=== PATIENT | male | born 1995 | race Caucasian/White ===

== ENCOUNTER 2020-07-25 13:20 | Inpatient (IN) | payer OTHER ==
[~2020-07-25] VITALS: Ht 170.2 cm; Wt 68.0 kg
[2020-07-25 15:28] LABS: COVID AG,FIA SOURCE NASOPHARYNGEAL
[2020-07-25 16:13] LABS: BASOPHILS % (AUTO) 0.1 % (0.0-2.0); EOSINOPHILS % (AUTO) 0.6 % (1.0-6.0); HEMATOCRIT 41.5 % (41-53); HEMOGLOBIN 14.1 g/dL (13.5-17.5); LYMPHOCYTES # (AUTO) 1.2 K/uL (1.0-4.8); LYMPHOCYTES % (AUTO) 25.2 % (22.0-44.0); MEAN CORPUSCULAR HEMOGLOBIN 28.7 pg (26.0-34.0); MEAN CORPUSCULAR HGB CONC 33.9 G/dL (31.0-37.0); MEAN CORPUSCULAR VOLUME 85 fL (80-100); MONOCYTES # (AUTO) 0.8 K/uL (0.1-1.0); MONOCYTES % (AUTO) 16.9 % (2.0-9.0); NEUTROPHILS # (AUTO) 2.6 K/uL (1.8-7.7); NEUTROPHILS % (AUTO) 57.2 % (40.0-70.0); PLATELET COUNT (AUTO) 153 K/uL (150-450)
[2020-07-25] MEDS ORDERED: ONDANSETRON HCL 4 MG/2 ML VIAL IVP PRN (17:00)
[2020-07-25] MEDS ORDERED: 0.9% SODIUM CHLORIDE 10 ML SYRINGE IVP PRN (17:00)
[2020-07-25] MEDS ORDERED: ACETAMINOPHEN 325 MG TABLET PO PRN ×2 (17:00→17:30)
[2020-07-25 17:27] LABS: ANION GAP 12 mmol/L (8-16); CALCIUM, TOTAL 9.3 mg/dL (8.8-10.5); CARBON DIOXIDE 25 mmol/L (22-29); CHLORIDE 104 mmol/L (98-107); CREATININE 0.97 mg/dL (0.60-1.30); GLOMERULAR FILTR. RATE CALC > 60 mL/min (>60); GLUCOSE,RANDOM 93 mg/dL (70-110); POTASSIUM 3.9 mmol/L (3.5-5.1); SODIUM SERUM 141 mmol/L (136-145); UREA NITROGEN, BLOOD 13 mg/dL (7-18)
[2020-07-25] MEDS ORDERED: ALBUTEROL SULFATE HFA 90 MCG/PUFF 8 GM INHALER IH PRN (17:30)
[2020-07-25 17:33] LABS: ALANINE AMINOTRANSFERASE 34 U/L (12-78); ALBUMIN 4.3 g/dL (3.4-5.0); ALKALINE PHOSPHATASE 87 U/L (46-116); ASPARTATE AMINOTRANSFERASE 13 U/L (15-37); BILIRUBIN,TOTAL 0.4 mg/dL (0.1-1.0); TOTAL PROTEIN, SERUM 8.1 g/dL (6.4-8.2)
[2020-07-25] MEDS: DOCUSATE SODIUM 100 MG CAPSULE PO SCH (21:00)
[2020-07-25 22:15] VITALS: BP 124/65
[2020-07-25] MEDS: HEPARIN SODIUM,PORCINE 5,000 UNITS/ML VIAL SQ SCH (23:04)
[2020-07-25] MEDS: ZINC SULFATE 220 MG CAPSULE PO SCH (23:04)
[2020-07-26] MEDS ORDERED: BENZONATATE 100 MG CAPSULE PO PRN (09:00)
[2020-07-26 09:31] VITALS: BP 110/45
[2020-07-26] MEDS: ZINC SULFATE 220 MG CAPSULE PO SCH ×2 (09:57→20:35)
[2020-07-26] MEDS: FAMOTIDINE 20 MG TABLET PO SCH (09:57)
[2020-07-26] MEDS: DOCUSATE SODIUM 100 MG CAPSULE PO SCH ×2 (09:57→20:34)
[2020-07-26] MEDS: HEPARIN SODIUM,PORCINE 5,000 UNITS/ML VIAL SQ SCH ×2 (09:57→16:54)
[2020-07-26 20:35] VITALS: BP 115/73
[2020-07-27] MEDS: HEPARIN SODIUM,PORCINE 5,000 UNITS/ML VIAL SQ SCH ×2 (00:21→08:12)
[2020-07-27 04:22] VITALS: BP 104/56
[2020-07-27] MEDS: ZINC SULFATE 220 MG CAPSULE PO SCH ×2 (08:12→21:40)
[2020-07-27] MEDS: DOCUSATE SODIUM 100 MG CAPSULE PO SCH ×2 (08:12→21:40)
[2020-07-27] MEDS: FAMOTIDINE 20 MG TABLET PO SCH (08:12)
[2020-07-27 10:25] VITALS: BP 124/73
[2020-07-27 19:00] VITALS: BP 138/82
[2020-07-27] MEDS: LORazepam 0.5 MG TABLET PO PRN (20:01)
[2020-07-28 05:05] VITALS: BP 110/60
[2020-07-28 07:29] LABS: BASOPHILS % (AUTO) 0.3 % (0.0-2.0); EOSINOPHILS % (AUTO) 2.1 % (1.0-6.0); HEMATOCRIT 41.8 % (41-53); HEMOGLOBIN 14.5 g/dL (13.5-17.5); LYMPHOCYTES # (AUTO) 1.7 K/uL (1.0-4.8); LYMPHOCYTES % (AUTO) 37.4 % (22.0-44.0); MEAN CORPUSCULAR HEMOGLOBIN 29.2 pg (26.0-34.0); MEAN CORPUSCULAR HGB CONC 34.7 G/dL (31.0-37.0); MEAN CORPUSCULAR VOLUME 84 fL (80-100); MONOCYTES # (AUTO) 0.6 K/uL (0.1-1.0); MONOCYTES % (AUTO) 12.6 % (2.0-9.0); NEUTROPHILS # (AUTO) 2.1 K/uL (1.8-7.7); NEUTROPHILS % (AUTO) 47.6 % (40.0-70.0); PLATELET COUNT (AUTO) 173 K/uL (150-450); RED BLOOD CELL COUNT(AUTO) 4.96 MIL/uL (4.50-5.90); RED CELL DISTRIBUTION WIDTH 13.8 % (11.5-14.5)
[2020-07-28 07:47] LABS: ANION GAP 7 mmol/L (8-16); CALCIUM, TOTAL 8.9 mg/dL (8.8-10.5); CARBON DIOXIDE 29 mmol/L (22-29); CHLORIDE 104 mmol/L (98-107); CREATININE 1.05 mg/dL (0.60-1.30); GLOMERULAR FILTR. RATE CALC > 60 mL/min (>60); GLUCOSE,RANDOM 82 mg/dL (70-110); POTASSIUM 4.1 mmol/L (3.5-5.1); SODIUM SERUM 140 mmol/L (136-145); UREA NITROGEN, BLOOD 17 mg/dL (7-18)
[2020-07-28 08:22] VITALS: BP 114/52
[2020-07-28] MEDS: FAMOTIDINE 20 MG TABLET PO SCH (09:32)
[2020-07-28] MEDS: ZINC SULFATE 220 MG CAPSULE PO SCH ×2 (09:32→20:46)
[2020-07-28] MEDS: DOCUSATE SODIUM 100 MG CAPSULE PO SCH ×2 (09:32→20:45)
[2020-07-28] MEDS ORDERED: DOCU-275 PO (12:28)
[2020-07-28] MEDS ORDERED: FAMO20 PO (12:30)
[2020-07-28] MEDS ORDERED: ZINC220C14 PO (12:31)
[2020-07-28] MEDS ORDERED: ALBU8HFA IH (12:32)
[2020-07-28] MEDS ORDERED: ACET-2865 PO (12:32)
[2020-07-28] MEDS ORDERED: BENZ-51 PO (12:33)
[2020-07-28 20:00] VITALS: BP 133/73
[2020-07-28] MEDS: LORazepam 0.5 MG TABLET PO PRN (22:23)
[2020-07-29 05:05] VITALS: BP 109/58
[2020-07-29 06:23] VITALS: BP 109/58
[2020-07-29 08:20] VITALS: BP 115/60
[2020-07-29] MEDS: ZINC SULFATE 220 MG CAPSULE PO SCH ×2 (08:49→20:21)
[2020-07-29] MEDS: DOCUSATE SODIUM 100 MG CAPSULE PO SCH ×2 (08:49→20:21)
[2020-07-29] MEDS: FAMOTIDINE 20 MG TABLET PO SCH (08:49)
[2020-07-29 18:24] LABS: COVID AG,FIA SOURCE NASOPHARYNGEAL
[2020-07-29 20:33] VITALS: BP 122/68
[2020-07-30 05:26] VITALS: BP 113/68
[2020-07-30 08:02] VITALS: BP 106/52
[2020-07-30] MEDS: ZINC SULFATE 220 MG CAPSULE PO SCH ×2 (08:07→21:15)
[2020-07-30] MEDS: FAMOTIDINE 20 MG TABLET PO SCH (08:07)
[2020-07-30] MEDS: DOCUSATE SODIUM 100 MG CAPSULE PO SCH ×2 (08:07→21:15)
[2020-07-30 19:58] VITALS: BP 130/72
[2020-07-31 04:28] VITALS: BP 115/59
[2020-07-31 08:54] VITALS: BP 119/56
[2020-07-31] MEDS: DOCUSATE SODIUM 100 MG CAPSULE PO SCH (09:27)
[2020-07-31] MEDS: ZINC SULFATE 220 MG CAPSULE PO SCH (09:27)
[2020-07-31] MEDS: FAMOTIDINE 20 MG TABLET PO SCH (09:27)
== END 2020-07-31 15:25 | DRG 177 ==
LOC: EMS 13:24 → 6S 16:55
PROVIDERS: ADMIT Internal Medicine; ATTEND Internal Medicine
DX: U07.1 COVID-19 (principal); J12.89 Other viral pneumonia
CPT/HCPCS: 85379; 87426; 93005; J1644; 36415-L1; 36415-TC; 71045-TC; U0003